=== PATIENT | female | born 1945 | race Caucasian/White ===

== ENCOUNTER → 2016-10-08 | Outpatient (CLI) | payer MEDICARE ==
[2016-10-08 21:13] LABS: INR 2.7 (<1.1); Prothrombin Time 26.5 sec (9.0-12.0)
== END | disposition home or self-care (01) ==
LOC: MMGSC 09:43
PROVIDERS: ATTEND Family Medicine
DX: Z79.01 Long term (current) use of anticoagulants (principal); Z51.81 Encounter for therapeutic drug level monitoring
CPT/HCPCS: 36415; 85610

== ENCOUNTER → 2016-10-16 | Outpatient (CLI) | payer MEDICARE ==
[2016-10-16 21:12] LABS: Prothrombin Time 29.5 sec (9.0-12.0)
== END | disposition home or self-care (01) ==
LOC: MMGSC 11:24
PROVIDERS: ATTEND Family Medicine
DX: Z79.01 Long term (current) use of anticoagulants (principal); Z51.81 Encounter for therapeutic drug level monitoring
CPT/HCPCS: 36415; 85610

== ENCOUNTER → 2016-10-24 | Outpatient (CLI) | payer MEDICARE ==
[2016-10-24 20:13] LABS: Prothrombin Time 19.1 sec (9.0-12.0)
== END | disposition home or self-care (01) ==
LOC: MMGSC 10:04
PROVIDERS: ATTEND Family Medicine
DX: Z79.01 Long term (current) use of anticoagulants (principal)
CPT/HCPCS: 36415; 85610

== ENCOUNTER → 2016-11-28 | Outpatient (CLI) | payer MEDICARE ==
[2016-11-28 19:35] LABS: INR 3.7 (<1.1); Prothrombin Time 35.6 sec (9.0-12.0)
== END | disposition home or self-care (01) ==
LOC: MMGSC 10:34
PROVIDERS: ATTEND Family Medicine
DX: Z79.01 Long term (current) use of anticoagulants (principal)
CPT/HCPCS: 36415; 85610

== ENCOUNTER → 2016-12-20 | Outpatient (CLI) | payer MEDICARE ==
[2016-12-20 21:10] LABS: Prothrombin Time 51.1 sec (9.0-12.0)
[2016-12-20 21:14] LABS: INR 5.1 (<1.1)
== END ==
LOC: MMGSC 10:13
PROVIDERS: ATTEND Family Medicine
DX: Z51.81 Encounter for therapeutic drug level monitoring (principal); Z79.01 Long term (current) use of anticoagulants
CPT/HCPCS: 36415; 85610

== ENCOUNTER → 2016-12-23 | Outpatient (CLI) | payer MEDICARE ==
[2016-12-23 19:31] LABS: INR 2.8 (<1.1); Prothrombin Time 26.7 sec (9.0-12.0)
== END ==
LOC: MMGSC 09:52
PROVIDERS: ATTEND Family Medicine
DX: Z51.81 Encounter for therapeutic drug level monitoring (principal); Z79.01 Long term (current) use of anticoagulants
CPT/HCPCS: 36415; 85610

== ENCOUNTER → 2016-12-30 | Outpatient (CLI) | payer MEDICARE ==
[2016-12-30 21:21] LABS: INR 1.7 (<1.1); Prothrombin Time 16.5 sec (9.0-12.0)
== END ==
LOC: MMGSC 13:57
PROVIDERS: ATTEND Family Medicine
DX: Z51.81 Encounter for therapeutic drug level monitoring (principal); Z79.01 Long term (current) use of anticoagulants
CPT/HCPCS: 36415; 85610

== ENCOUNTER → 2017-01-20 | Outpatient (CLI) | payer MEDICARE ==
[2017-01-20 20:11] LABS: INR 2.1 (<1.1)
== END ==
LOC: MMGSC 10:14
PROVIDERS: ATTEND Family Medicine
DX: Z51.81 Encounter for therapeutic drug level monitoring (principal); Z79.01 Long term (current) use of anticoagulants
CPT/HCPCS: 36415; 85610

== ENCOUNTER 2017-02-12 12:55 | Day surgery (SDC) | payer MEDICARE ==
[2017-02-07 15:56] VITALS: BMI 29.9
[~2017-02-12 12:55] MED LIST: LACTATED RINGERS 1,000 ML IV SCH; LIDOCAINE 1% 20 ML VIAL (10MG/ML) FOR IV START INTRADERMA PRN
[2017-02-12 13:10] VITALS: RESP 16; TEMP 97
[2017-02-12] MEDS ORDERED: PROPOFOL 10 MG/ML 20 ML VIAL IV ONE (13:45)
--- NOTE | 2017-02-12 13:53 | P.GSHP ---
History of Present Illness H&P Date: 02/12/17 Chief Complaint: Epigastric dull pain, GERD This is a 71-year-old female for from Dr. Tompkins,. Patient presents today for EGD. She's had issues of epigastric and. And GERD. - Constitutional Constitutional: Reports as per HPI Past Medical History Past Medical History: Deep Vein Thrombosis (DVT), Hyperlipidemia, Hypertension, Thyroid Disorder History of Any Multi-Drug Resistant Organisms: None Reported Past Surgical History: Cholecystectomy, Hysterectomy, Joint Replacement, Orthopedic Surgery Additional Past Surgical History / Comment(s): both knees replaced, feet surgery ; pilonidal cyst Past Anesthesia/Blood Transfusion Reactions: No Reported Reaction Smoking Status: Never smoker Past Alcohol Use History: Rare Past Drug Use History: None Reported - Past Family History Father Family Medical History: Deep Vein Thrombosis (DVT) Brother(s) Family Medical History: Deep Vein Thrombosis (DVT) Medications and Allergies Home Medications Medication Instructions Recorded Confirmed Type Acetaminophen-Codeine 300-30mg 1 tab PO Q4H PRN 02/07/17 02/07/17 History [Tylenol #3] Atorvastatin [Lipitor] 20 mg PO DAILY 02/07/17 02/07/17 History Cyclobenzaprine [Flexeril] 10 mg PO TID PRN 02/07/17 02/07/17 History Levothyroxine Sodium [Synthroid] 25 mcg PO DAILY 02/07/17 02/07/17 History Metoprolol Tartrate [Lopressor] 25 mg PO DAILY 02/07/17 02/07/17 History Omeprazole [PriLOSEC] 10 mg PO DAILY 02/07/17 02/07/17 History Warfarin [Coumadin] 2.5 mg PO SUMOWETHSA 02/07/17 02/07/17 History Warfarin [Coumadin] 5 mg PO TUFR 02/07/17 02/07/17 History clonazePAM [KlonoPIN] 0.5 mg PO TID PRN 02/07/17 02/07/17 History Allergies Allergy/AdvReac Type Severity Reaction Status Date / Time nickel Allergy Severe Rash/Hives Verified 02/12/17 13:08 Penicillins Allergy Anaphylaxis Verified 02/07/17 15:44 Sulfa (Sulfonamide Allergy Anaphylaxis Verified 02/07/17 15:44 Antibiotics) acetaminophen [From Lortab] AdvReac Nausea & Verified 02/07/17 15:44 Vomiting hydrocodone [From Lortab] AdvReac Nausea & Verified 02/07/17 15:44 Vomiting nitrofurantoin AdvReac Nausea & Verified 02/07/17 15:44 [From Macrobid] Vomiting Surgical - Exam Vital Signs Temp Pulse Resp BP Pulse Ox 97 F L 69 16 161/91 93 L 02/12/17 13:08 02/12/17 13:08 02/12/17 13:08 02/12/17 13:08 02/12/17 13:08 - General well developed, no distress - Eyes PERRL - ENT normal pinna - Neck no masses - Respiratory normal expansion - Cardiovascular Rhythm: regular - Abdomen Abdomen: soft Assessment and Plan Plan: GERD, epigastric pain. We'll perform EGD.
--- NOTE | 2017-02-12 13:57 | P.OP ---
Date of Procedure: 02/12/17 Preoperative Diagnosis: Epigastric dull pain GERD Postoperative Diagnosis: Antral gastritis No evidence of hiatal hernia Mild Esophagitis Procedure(s) Performed: EGD Anesthesia: MAC Surgeon: Harry Lofton Pathology: other (Antrum, esophagus) Condition: stable Disposition: PACU Description of Procedure: Patient's placed on the endoscopy table in the lateral position. She received IV sedation. The gastroscope some placed oropharynx and passed into the esophagus and stomach. Scope was then placed through the pylorus. The first and second portion of the duodenum appeared normal. The scope was then brought back the antrum and this was minimal inflamed and a biopsies performed. The scope was then retroflexed and remainder some appeared normal. There was no significant hiatal hernia. The GE junction was at 40 cm distal esophagus appeared mildly inflamed a biopsy was performed. The proximal esophagus appeared normal and the scope was then withdrawn for patient.
[2017-02-12 14:21] VITALS: BP 158/82; PULSE 63
== END 2017-02-12 14:42 | disposition home or self-care (01) ==
LOC: ORWHC2ENDO 12:55
PROVIDERS: ATTEND Surgery
DX: K29.50 Unspecified chronic gastritis without bleeding (principal); K21.0 Gastro-esophageal reflux disease with esophagitis; E78.5 Hyperlipidemia, unspecified; I10 Essential (primary) hypertension; E07.9 Disorder of thyroid, unspecified; Z86.718 Personal history of other venous thrombosis and embolism; Z79.01 Long term (current) use of anticoagulants; Z79.899 Other long term (current) drug therapy; Z88.1 Allergy status to other antibiotic agents; Z88.0 Allergy status to penicillin; Z88.2 Allergy status to sulfonamides; Z91.09 Other allergy status, other than to drugs and biological substances
CPT/HCPCS: 88305; 88342; 43239; J2704

== ENCOUNTER → 2017-02-20 | Outpatient (CLI) | payer MEDICARE | LOC: MMGSC 11:00 | PROVIDERS: ATTEND Family Medicine | DX: Z51.81 Encounter for therapeutic drug level monitoring (principal); Z79.01 Long term (current) use of anticoagulants | CPT/HCPCS: 36415; 85610 ==

== ENCOUNTER → 2017-03-19 | Outpatient (CLI) | payer MEDICARE ==
[2017-03-19 19:50] LABS: INR 2.8 (<1.1); Prothrombin Time 26.6 sec (9.0-12.0)
== END | disposition home or self-care (01) ==
LOC: MMGSC 09:36
PROVIDERS: ATTEND Family Medicine
DX: Z51.81 Encounter for therapeutic drug level monitoring (principal); Z79.01 Long term (current) use of anticoagulants
CPT/HCPCS: 36415; 85610

== ENCOUNTER → 2017-04-21 | Outpatient (CLI) | payer MEDICARE ==
[2017-04-21 19:01] LABS: INR 2.4 (<1.2); Prothrombin Time 23.3 sec (9.0-12.0)
== END ==
LOC: MMGSC 10:20
PROVIDERS: ATTEND Family Medicine
DX: Z51.81 Encounter for therapeutic drug level monitoring (principal); Z79.01 Long term (current) use of anticoagulants
CPT/HCPCS: 36415; 85610

== ENCOUNTER → 2017-06-02 | Outpatient (CLI) | payer MEDICARE ==
[2017-06-02 19:44] LABS: Basophils # (A) 0.1 k/uL (0-0.2); Basophils % (A) 1 %; CH 30.5; CHCM 32.5; Eosinophils # (A) 0.1 k/uL (0-0.7); Eosinophils % (A) 2 %; HCT 46.6 % (34.0-46.0); HDW 2.48; HGB 14.9 gm/dL (11.4-16.0); Luc # (Auto) 0.28; Luc % (Auto) 3; Lymphocytes # (A) 2.3 k/uL (1.0-4.8); Lymphocytes % (A) 28 %; MCH 30.3 pg (25.0-35.0); MCV 94.6 fL (80.0-100.0); Mean Platelet Volume 8.6; Monocytes # (A) 0.7 k/uL (0-1.0); Monocytes % (A) 8 %; Neutrophils # (A) 4.9 k/uL (1.3-7.7); Neutrophils % (A) 58 %; RBC 4.93 m/uL (3.80-5.40); RDW 15.1 % (11.5-15.5); WBC 8.4 k/uL (3.8-10.6); WBC (Perox) 8.61
[2017-06-02 19:56] LABS: ALT 41 U/L (9-52); AST 23 U/L (14-36); Alkaline Phosphatase 117 U/L (38-126); Anion Gap 10 mmol/L; Blood Urea Nitrogen 19 mg/dL (7-17); Calcium 9.7 mg/dL (8.4-10.2); Carbon Dioxide 27 mmol/L (22-30); Chloride 105 mmol/L (98-107); Cholesterol 210 mg/dL (<200); Glucose 91 mg/dL (74-99); HDL Cholesterol 60 mg/dL (40-60); Non-African American GFR(MDRD) >60 (>60 ml/min/1.73 sqM); Potassium 4.7 mmol/L (3.5-5.1); Sodium 142 mmol/L (137-145); Total Protein 6.8 g/dL (6.3-8.2)
[2017-06-02 20:17] LABS: INR 1.9 (<1.2); Prothrombin Time 18.1 sec (9.0-12.0)
== END | disposition home or self-care (01) ==
LOC: MMGSC 10:56
PROVIDERS: ATTEND Family Medicine
DX: E03.9 Hypothyroidism, unspecified (principal); E78.5 Hyperlipidemia, unspecified; I48.91 Unspecified atrial fibrillation; Z79.01 Long term (current) use of anticoagulants
CPT/HCPCS: 36415; 80053; 80061; 84439; 84443; 85025; 85610

== ENCOUNTER → 2017-07-02 | Outpatient (CLI) | payer MEDICARE ==
[2017-07-02 20:14] LABS: INR 2.2 (<1.2); Prothrombin Time 20.7 sec (9.0-12.0)
== END ==
LOC: MMGSC 10:10
PROVIDERS: ATTEND Family Medicine
DX: Z51.81 Encounter for therapeutic drug level monitoring (principal); Z79.01 Long term (current) use of anticoagulants
CPT/HCPCS: 36415; 85610

== ENCOUNTER → 2017-08-15 | Outpatient (CLI) | payer MEDICARE ==
[2017-08-15 19:24] LABS: ALT 33 U/L (9-52); AST 19 U/L (14-36); Alkaline Phosphatase 136 U/L (38-126); Anion Gap 10 mmol/L; Blood Urea Nitrogen 20 mg/dL (7-17); Calcium 9.5 mg/dL (8.4-10.2); Carbon Dioxide 22 mmol/L (22-30); Chloride 110 mmol/L (98-107); Cholesterol 213 mg/dL (<200); Glucose 170 mg/dL (74-99); HDL Cholesterol 56 mg/dL (40-60); Non-African American GFR(MDRD) >60 (>60 ml/min/1.73 sqM); Sodium 142 mmol/L (137-145); Total Bilirubin 0.7 mg/dL (0.2-1.3); Total Protein 6.6 g/dL (6.3-8.2)
[2017-08-15 19:50] LABS: Basophils % (A) 0 %; CH 28.9; CHCM 30.9; Eosinophils % (A) 0 %; HCT 44.7 % (34.0-46.0); HDW 2.51; HGB 13.9 gm/dL (11.4-16.0); Hypochromasia Slight; Luc # (Auto) 0.16; Luc % (Auto) 1; Lymphocytes # (A) 2.5 k/uL (1.0-4.8); Lymphocytes % (A) 19 %; MCH 29.1 pg (25.0-35.0); MCV 93.9 fL (80.0-100.0); Mean Platelet Volume 8.8; Monocytes # (A) 0.6 k/uL (0-1.0); Monocytes % (A) 5 %; Neutrophils # (A) 9.9 k/uL (1.3-7.7); Neutrophils % (A) 75 %; RBC 4.76 m/uL (3.80-5.40); RDW 14.1 % (11.5-15.5); WBC 13.1 k/uL (3.8-10.6); WBC (Perox) 12.66
[2017-08-15 20:24] LABS: INR 3.8 (<1.2); Prothrombin Time 37.5 sec (9.0-12.0)
== END | disposition home or self-care (01) ==
LOC: MMGSC 10:07
PROVIDERS: ATTEND Family Medicine
DX: I10 Essential (primary) hypertension (principal); E03.9 Hypothyroidism, unspecified; E78.5 Hyperlipidemia, unspecified; Z79.01 Long term (current) use of anticoagulants
CPT/HCPCS: 36415; 80053; 80061; 84439; 84443; 85025; 85610

== ENCOUNTER → 2017-08-19 | Outpatient (CLI) | payer MEDICARE ==
--- NOTE | 2017-08-20 09:20 | MM ---
Reason for exam: screening (asymptomatic). Last mammogram was performed 1 year and 1 month ago. History: Patient is postmenopausal. Physical Findings: A clinical breast exam by your physician is recommended on an annual basis and results should be correlated with mammographic findings. MG 3D Screening Mammo W/Cad Bilateral CC and MLO view(s) were taken. Prior study comparison: July 23, 2016, bilateral MG 3d screening mammo w/cad. July 18, 2015, bilateral MG screening mammo w CAD. There are scattered fibroglandular densities. Finding: There are typically benign calcifications. There is a chronic nodularity in the right breast. No significant changes in finding since July 23, 2016 and July 18, 2015. ASSESSMENT: Benign, BI-RAD 2 RECOMMENDATION: Routine screening mammogram of both breasts in 1 year.
== END | disposition home or self-care (01) ==
LOC: RADMAMWWP 09:45
PROVIDERS: ATTEND Family Medicine
DX: Z12.31 Encounter for screening mammogram for malignant neoplasm of breast (principal)
CPT/HCPCS: 77063; G0202

== ENCOUNTER → 2017-08-26 | Outpatient (CLI) | payer MEDICARE ==
[2017-08-26 20:20] LABS: INR 1.7 (<1.2); Prothrombin Time 16.6 sec (9.0-12.0)
== END ==
LOC: MMGSC 10:46
PROVIDERS: ATTEND Family Medicine
DX: Z51.81 Encounter for therapeutic drug level monitoring (principal); Z79.01 Long term (current) use of anticoagulants
CPT/HCPCS: 36415; 85610

== ENCOUNTER → 2017-09-01 | Outpatient (CLI) | payer MEDICARE ==
[2017-09-01 20:25] LABS: INR 1.9 (<1.2)
== END ==
LOC: MMGSC 11:48
PROVIDERS: ATTEND Family Medicine
DX: Z51.81 Encounter for therapeutic drug level monitoring (principal); Z79.01 Long term (current) use of anticoagulants
CPT/HCPCS: 36415; 85610

== ENCOUNTER → 2017-10-08 | Outpatient (CLI) | payer MEDICARE ==
[2017-10-08 20:32] LABS: INR 3.8 (<1.2); Prothrombin Time 33.9 sec (9.0-12.0)
== END | disposition home or self-care (01) ==
LOC: MMGSC 11:44
PROVIDERS: ATTEND Family Medicine
DX: Z51.81 Encounter for therapeutic drug level monitoring (principal); Z79.01 Long term (current) use of anticoagulants
CPT/HCPCS: 36415; 85610

== ENCOUNTER → 2017-11-18 | Outpatient (CLI) | payer MEDICARE ==
[2017-11-18 21:07] LABS: INR 2.5 (<1.2); Prothrombin Time 22.2 sec (9.0-12.0)
== END | disposition home or self-care (01) ==
LOC: MMGSC 09:47
PROVIDERS: ATTEND Family Medicine
DX: Z51.81 Encounter for therapeutic drug level monitoring (principal); Z79.01 Long term (current) use of anticoagulants
CPT/HCPCS: 36415; 85610

== ENCOUNTER → 2017-12-08 | Outpatient (CLI) | payer MEDICARE | END | disposition home or self-care (01) | LOC: MMGSC 12:07 | PROVIDERS: ATTEND Family Medicine | DX: N39.0 Urinary tract infection, site not specified (principal) | CPT/HCPCS: 87077; 87086; 87186 ==

== ENCOUNTER 2018-05-09 16:25 | Inpatient (IN) | payer MEDICARE ==
[2018-05-09] MEDS ORDERED: SODIUM CHLORIDE 0.9% 1,000 ML IV STA ×2 (17:58)
--- NOTE | 2018-05-09 18:02 | ED ---
General Adult HPI - General Chief complaint: Headache Stated complaint: headache/nausea Time Seen by Provider: 05/09/18 17:57 Source: patient, RN notes reviewed, old records reviewed Mode of arrival: ambulatory Limitations: no limitations - History of Present Illness Initial comments: This is a 72-year-old female to the ER for evaluation. Patient presents today for evaluation regarding headache, weakness,. Patient states she has history of similar complaints. She states she was seen this week for similar complaint and had a CAT scan yesterday told her blood pressure was high. Patient was discharged home. Symptoms have persisted - Related Data Home Medications Medication Instructions Recorded Confirmed Acetaminophen-Codeine 300-30mg 1 tab PO Q4H PRN 02/07/17 02/07/17 [Tylenol #3] Atorvastatin [Lipitor] 20 mg PO DAILY 02/07/17 02/07/17 Cyclobenzaprine [Flexeril] 10 mg PO TID PRN 02/07/17 02/07/17 Levothyroxine Sodium [Synthroid] 25 mcg PO DAILY 02/07/17 02/07/17 Metoprolol Tartrate [Lopressor] 25 mg PO DAILY 02/07/17 02/07/17 Omeprazole [PriLOSEC] 10 mg PO DAILY 02/07/17 02/07/17 Warfarin [Coumadin] 2.5 mg PO SUMOWETHSA 02/07/17 02/07/17 Warfarin [Coumadin] 5 mg PO TUFR 02/07/17 02/07/17 clonazePAM [KlonoPIN] 0.5 mg PO TID PRN 02/07/17 02/07/17 Allergies Allergy/AdvReac Type Severity Reaction Status Date / Time nickel Allergy Severe Rash/Hives Verified 02/12/17 13:08 Penicillins Allergy Anaphylaxis Verified 02/07/17 15:44 Sulfa (Sulfonamide Allergy Anaphylaxis Verified 02/07/17 15:44 Antibiotics) acetaminophen [From Lortab] AdvReac Nausea & Verified 02/07/17 15:44 Vomiting hydrocodone [From Lortab] AdvReac Nausea & Verified 02/07/17 15:44 Vomiting nitrofurantoin AdvReac Nausea & Verified 02/07/17 15:44 [From Macrobid] Vomiting Review of Systems ROS Statement: Those systems with pertinent positive or pertinent negative responses have been documented in the HPI. ROS Other: All systems not noted in ROS Statement are negative. Past Medical History Past Medical History: Deep Vein Thrombosis (DVT), Hyperlipidemia, Hypertension, Thyroid Disorder History of Any Multi-Drug Resistant Organisms: None Reported Past Surgical History: Cholecystectomy, Hysterectomy, Joint Replacement, Orthopedic Surgery Additional Past Surgical History / Comment(s): both knees replaced, feet surgery ; pilonidal cyst Past Anesthesia/Blood Transfusion Reactions: No Reported Reaction Past Psychological History: No Psychological Hx Reported Smoking Status: Never smoker Past Alcohol Use History: Rare Past Drug Use History: None Reported - Past Family History Father Family Medical History: Deep Vein Thrombosis (DVT) Brother(s) Family Medical History: Deep Vein Thrombosis (DVT) General Exam Limitations: no limitations General appearance: alert, in no apparent distress Head exam: Present: atraumatic, normocephalic, normal inspection Eye exam: Present: normal appearance, PERRL, EOMI. Absent: scleral icterus, conjunctival injection, periorbital swelling ENT exam: Present: normal exam, mucous membranes moist Neck exam: Present: normal inspection. Absent: tenderness, meningismus, lymphadenopathy Respiratory exam: Present: normal lung sounds bilaterally. Absent: respiratory distress, wheezes, rales, rhonchi, stridor Cardiovascular Exam: Present: regular rate, normal rhythm, normal heart sounds. Absent: systolic murmur, diastolic murmur, rubs, gallop, clicks GI/Abdominal exam: Present: soft, normal bowel sounds. Absent: distended, tenderness, guarding, rebound, rigid Extremities exam: Present: normal inspection, full ROM, normal capillary refill. Absent: tenderness, pedal edema, joint swelling, calf tenderness Back exam: Present: normal inspection Neurological exam: Present: alert, oriented X3, CN II-XII intact Psychiatric exam: Present: normal affect, normal mood Skin exam: Present: warm, dry, intact, normal color. Absent: rash Course Vital Signs 05/09/18 16:42 Temperature 99.5 F Pulse Rate 77 Respiratory 16 Rate Blood Pressure 134/85 O2 Sat by Pulse 95 Oximetry - Reevaluation(s) Reevaluation #1: 05/09/18 19:[address] Avila did see patient in the emergency room regarding symptoms EKG Findings - EKG Comments: EKG Findings:: EKG shows sinus rhythm rate of 72, TX 154, QRS 80, QTC 442 Medical Decision Making - Medical Decision Making 72 female the ER with recurrent neurological complaints, CT remains negative. We'll request patient's lab work from prior ER visit at [facility]. Patient does and will be admitted for advanced neurological testing blood pressure control - Lab Data Result diagrams: 05/09/18 18:47 05/09/18 18:47 Lab Results 05/09/18 05/09/18 05/09/18 Range/Units 18:47 18:47 18:47 WBC 10.1 (3.8-10.6) k/uL RBC 5.07 (3.80-5.40) m/uL Hgb 14.0 (11.4-16.0) gm/dL Hct 44.1 (34.0-46.0) % MCV 86.9 (80.0-100.0) fL MCH 27.7 (25.0-35.0) pg MCHC 31.9 (31.0-37.0) g/dL RDW 13.2 (11.5-15.5) % Plt Count 287 (150-450) k/uL Neutrophils % 75 % Lymphocytes % 18 % Monocytes % 4 % Eosinophils % 0 % Basophils % 0 % Neutrophils # 7.6 (1.3-7.7) k/uL Lymphocytes # 1.8 (1.0-4.8) k/uL Monocytes # 0.4 (0-1.0) k/uL Eosinophils # 0.0 (0-0.7) k/uL Basophils # 0.0 (0-0.2) k/uL PT (9.0-12.0) sec INR (<1.2) APTT (22.0-30.0) sec Sodium 139 (137-145) mmol/L Potassium 4.4 (3.5-5.1) mmol/L Chloride 106 (98-107) mmol/L Carbon Dioxide 24 (22-30) mmol/L Anion Gap 9 mmol/L BUN 15 (7-17) mg/dL Creatinine 0.80 (0.52-1.04) mg/dL Est GFR (CKD-EPI)AfAm 85 (>60 ml/min/1.73 sqM) Est GFR (CKD-EPI)NonAf 74 (>60 ml/min/1.73 sqM) Glucose 114 H (74-99) mg/dL Calcium 9.6 (8.4-10.2) mg/dL Phosphorus 3.1 (2.5-4.5) mg/dL Magnesium 1.9 (1.6-2.3) mg/dL Total Bilirubin 1.1 (0.2-1.3) mg/dL AST 21 (14-36) U/L ALT 31 (9-52) U/L Alkaline Phosphatase 171 H (38-126) U/L Total Creatine Kinase 54 (30-135) U/L CK-MB (CK-2) 0.2 (0.0-2.4) ng/mL CK-MB (CK-2) Rel Index 0.4 Troponin I <0.012 (0.000-0.034) ng/mL Total Protein 7.0 (6.3-8.2) g/dL Albumin 4.3 (3.5-5.0) g/dL 05/09/18 Range/Units 18:47 WBC (3.8-10.6) k/uL RBC (3.80-5.40) m/uL Hgb (11.4-16.0) gm/dL Hct (34.0-46.0) % MCV (80.0-100.0) fL MCH (25.0-35.0) pg MCHC (31.0-37.0) g/dL RDW (11.5-15.5) % Plt Count (150-450) k/uL Neutrophils % % Lymphocytes % % Monocytes % % Eosinophils % % Basophils % % Neutrophils # (1.3-7.7) k/uL Lymphocytes # (1.0-4.8) k/uL Monocytes # (0-1.0) k/uL Eosinophils # (0-0.7) k/uL Basophils # (0-0.2) k/uL PT 28.1 H (9.0-12.0) sec INR 3.1 H (<1.2) APTT 30.6 H (22.0-30.0) sec Sodium (137-145) mmol/L Potassium (3.5-5.1) mmol/L Chloride (98-107) mmol/L Carbon Dioxide (22-30) mmol/L Anion Gap mmol/L BUN (7-17) mg/dL Creatinine (0.52-1.04) mg/dL Est GFR (CKD-EPI)AfAm (>60 ml/min/1.73 sqM) Est GFR (CKD-EPI)NonAf (>60 ml/min/1.73 sqM) Glucose (74-99) mg/dL Calcium (8.4-10.2) mg/dL Phosphorus (2.5-4.5) mg/dL Magnesium (1.6-2.3) mg/dL Total Bilirubin (0.2-1.3) mg/dL AST (14-36) U/L ALT (9-52) U/L Alkaline Phosphatase (38-126) U/L Total Creatine Kinase (30-135) U/L CK-MB (CK-2) (0.0-2.4) ng/mL CK-MB (CK-2) Rel Index Troponin I (0.000-0.034) ng/mL Total Protein (6.3-8.2) g/dL Albumin (3.5-5.0) g/dL - Radiology Data Radiology results: report reviewed (CT brain CT head and neck negative), image reviewed Disposition Clinical Impression: Migraine, Hypertension, CVA (cerebral vascular accident) Disposition: ADMITTED IP TO THIS HOSP Condition: Fair Referrals: Karan Yuan MD [Primary Care Provider] - 1-2 days
[2018-05-09 19:03] LABS: Basophils % (A) 0 %; Eosinophils % (A) 0 %; HCT 44.1 % (34.0-46.0); Lymphocytes # (A) 1.8 k/uL (1.0-4.8); Lymphocytes % (A) 18 %; MCH 27.7 pg (25.0-35.0); MCHC 31.9 g/dL (31.0-37.0); MCV 86.9 fL (80.0-100.0); Mean Platelet Volume 7.1; Monocytes # (A) 0.4 k/uL (0-1.0); Monocytes % (A) 4 %; Neutrophils # (A) 7.6 k/uL (1.3-7.7); Neutrophils % (A) 75 %; Platelet Count 287 k/uL (150-450); RBC 5.07 m/uL (3.80-5.40); RDW 13.2 % (11.5-15.5); WBC 10.1 k/uL (3.8-10.6)
[2018-05-09 19:19] LABS: Creatine Kinase 54 U/L (30-135)
[2018-05-09 19:21] LABS: Albumin 4.3 g/dL (3.5-5.0); Calcium 9.6 mg/dL (8.4-10.2); Magnesium 1.9 mg/dL (1.6-2.3); Phosphorus 3.1 mg/dL (2.5-4.5); Potassium 4.4 mmol/L (3.5-5.1); Total Bilirubin 1.1 mg/dL (0.2-1.3)
[2018-05-09 19:26] LABS: INR 3.1 (<1.2); Partial Thromboplastin Time 30.6 sec (22.0-30.0); Prothrombin Time 28.1 sec (9.0-12.0)
[2018-05-09 19:31] LABS: Creatine Kinase MB 0.2 ng/mL (0.0-2.4); Troponin I <0.012 ng/mL (0.000-0.034)
--- NOTE | 2018-05-09 19:50 | CT ---
EXAMINATION TYPE: CT brain wo con DATE OF EXAM: 05/09/2018 COMPARISON: None INDICATION: weakness DLP: 742.7 mGycm, Automated exposure control for dose reduction was used. CONTRAST: None CT of the brain is performed utilizing 3 mm thick sections through the posterior fossa and 3 mm thick sections through the remaining calvarium. Study is performed within 24 hours of arrival to the hosp ital. No abnormal hyperdensity is present to suggest an acute intracranial hemorrhage. No mass lesion is evident. No acute infarcts are evident. There is some mild periventricular white matter hypodensity, most like ly on the basis of chronic white matter ischemic changes. Ventricles and sulci are appropriate for the patient age. Paranasal sinuses and mastoid air cells within the [id number] are clear. IMPRESSIONS: 1. Mild white matter changes most likely chronic ischemic changes
[2018-05-09] MEDS ORDERED: ASPIRIN 325 MG TAB PO STA (19:53)
[2018-05-09] MEDS ORDERED: MORPHINE SULFATE 4 MG/ML SYRINGE IVP PRN (20:06)
[2018-05-09] MEDS ORDERED: ONDANSETRON 4 MG/2 ML VIAL IVP STA (20:06)
[2018-05-09] MEDS ORDERED: MORPHINE SULFATE 4 MG/ML SYRINGE IVP STA (20:06)
--- NOTE | 2018-05-09 20:18 | CT ---
EXAMINATION TYPE: CT angio head neck DATE OF EXAM: 05/09/2018 HISTORY: pain COMPARISON: None CT DLP: 267.3 mGycm. Automated Exposure Control for Dose Reduction was Utilized. TECHNIQUE: CTA scan of the neck is performed with IV Contrast, patient injected with 65 mL of Isovue 370, axial images are obtained, coronal and sagittal reformatted images are reviewed. Three-D recons tructed images are created on an independent workstation and reviewed. FINDINGS: Carotid/Vascular Structures: Common carotid arteries bifurcate into internal and external carotid art eries. No significant flow-limiting stenosis is evident. Vertebral arteries are codominant. [place]: Internal carotid arteries bifurcate into A1 and M1 segments. The A2 segments are no rmal. Anterior communicating artery is patent. The left posterior communicating artery is patent. Ivis tebral basilar system appears patent. Posterior cerebral vasculature is normal. IMPRESSION: 1. No significant flow-limiting stenosis.
[2018-05-09] MEDS: SODIUM CHLORIDE 0.9% 1,000 ML IV SCH (22:53)
[2018-05-09 23:09] VITALS: BMI 30.7
[2018-05-10 05:53] LABS: Cholesterol 167 mg/dL (<200); HDL Cholesterol 43 mg/dL (40-60); LDL Cholesterol,Calculated 92 mg/dL (0-99); Triglycerides 162 mg/dL (<150)
[2018-05-10] MEDS: SODIUM CHLORIDE 0.9% 1,000 ML IV SCH ×2 (05:58→17:39)
[2018-05-10] MEDS: ONDANSETRON 4 MG/2 ML VIAL IVP PRN ×2 (06:51→14:00)
[2018-05-10] MEDS: ASPIRIN 325 MG TAB PO SCH (08:31)
[2018-05-10] MEDS ORDERED: clonazePAM 0.5 MG TAB PO PRN (10:21)
[2018-05-10] MEDS ORDERED: CYCLOBENZAPRINE 10 MG TAB PO PRN (10:21)
[2018-05-10] MEDS ORDERED: Acetaminophen-Codeine 300-30mg TAB PO PRN (10:21)
[2018-05-10 11:20] LABS: Prothrombin Time 26.9 sec (9.0-12.0)
--- NOTE | 2018-05-10 11:46 | HP ---
HISTORY AND PHYSICAL DATE OF SERVICE: 05/09/2018. CHIEF COMPLAINT: A 72-year-old white female with headache, nausea, and left arm tingling and vomiting. Came in with possible TIA. She was seen in the emergency room the day before admission here for the same thing. The blood pressures was running high. She was admitted to the hospital at this time for possible TIA and hypertension acceleration with left arm weakness and numbness. HOME MEDICATIONS: 1. Lipitor. 2. Flexeril. 3. Synthroid. 4. Lopressor. 5. Prilosec. 6. Coumadin. 7. Tylenol 3. 8. Clonazepam. ALLERGIES: , PENICILLIN, SULFA, LORTAB, MACROBID. REVIEW OF SYSTEMS: A fourteen point review of systems negative except for mentioned in HPI. PAST MEDICAL HISTORY: DVT, dyslipidemia, hypertension, hypothyroidism. SURGICAL HISTORY: Cholecystectomy, hysterectomy, joint replacement, orthopedic surgery, bilateral knee replacement. SOCIAL HISTORY: No smoking. Rare alcohol. No illicit drugs. FAMILY HISTORY: Father with DVT. Brother with DVT. PHYSICAL EXAM: Temp 99.5, pulse 70 to 77, respiratory rate 16 to 18, blood pressure 130s over 80s, O2 of 95%. HEENT: Normocephalic, atraumatic. CARDIOVASCULAR: S1, S2. Tenderness to palpation in paracervical and paralumbar muscle. CARDIOVASCULAR: Normal rate and rhythm. GI: Soft, nontender. No guarding. No rebound. EXTREMITIES: No cyanosis, clubbing, edema. BACK: Normal to inspection. NEUROLOGIC: Alert and oriented x3. PSYCH: Fair mood and affect. SKIN: Warm, dry, intact. LUNGS: Clear. ENDOCRINE: BMI is over 30. DIAGNOSTIC STUDIES: EKG sinus rhythm. Labs reviewed on the patient. Troponins are negative. Alkaline phosphatase is little high. INR is 3.1. ASSESSMENT: 1. Migraine. 2. Hypertension. 3. Cerebrovascular accident. 4. Hypothyroidism. Will order MRI of the brain. Await Neurology consult. Maybe a carotid ultrasound. MMODL / IJN: [id number] /
[2018-05-10 12:46] LABS: Amylase 41 U/L (30-110); Lipase 57 U/L (23-300)
--- NOTE | 2018-05-10 12:57 | CT ---
EXAMINATION TYPE: CT cervical spine wo con DATE OF EXAM: 05/10/2018 COMPARISON: None. HISTORY: DDD and arm numbness CT DLP: 557.00 mGycm Automated exposure control for dose reduction was used. TECHNIQUE: CT scan of the cervical spine is obtained without contrast, axial images are obtained, sa gittal and coronal reformatted images are also reviewed. FINDINGS: Visualized portions of the lungs are clear. There are mild emphysematous changes present. Prevertebral soft tissues are normal. Vertebral body height and alignment are maintained. Atlantoaxial relationships are normal. At C2-3, no definite abnormality is seen. At C3-4, there is disc space loss. There is right-sided intervertebral foraminal narrowing. There is a diffuse disc displacement. There is mild hypertrophic change in the right facet. There is mild unco vertebral joint disease. At C4-5, there is bilateral facet arthropathy. Intervertebral foramina are reasonably well-maintained . There is no significant compressive discopathy. The uncovertebral joints show mild degenerative anthony nge. At C5-6, there is severe disc space loss and hypertrophic spondylosis both anteriorly and posteriorly . There is some hypertrophic changes in the facets. There is bilateral intervertebral foraminal narro wing, worse on the left than the right. There is uncovertebral and facet arthropathy. At C6-7, there is severe disc space loss and hypertrophic spondylosis both anteriorly and posteriorly . There is bilateral intervertebral foraminal narrowing. There is facet and uncovertebral joint disea se. At C7-T1, the intervertebral foramina are well maintained. There is no significant compressive discop athy. IMPRESSION: 1. Diffuse degenerative disc disease and hypertrophic spondylosis. 2. Multilevel intervertebral foraminal narrowing. 3. Diffuse uncovertebral joint disease. 4. Emphysematous changes within the lungs.
--- NOTE | 2018-05-10 14:21 | P.CNNES ---
History of Present Illness Consult date: 05/10/18 Requesting physician: Karan Yuan Reason for Consult: Possible CVA History of Present Illness: Patient is a pleasant 72-year-old female who is being evaluated by the neurology service on 05/10/2018 per the request of Dr. Yuan for possible CVA. Patient has history of lower extremity DVTs and is on warfarin in the home setting. Patient has history of cervical and lumbar disc disease and sees Dr. Grimes in the outpatient setting. Patient states she's had a headache for the last few days but it does come and go. She also states she's had left hand and finger numbness and tingling that comes and goes. Patient states numbness and tingling lasts for seconds and goes away. Patient was seen earlier this week for similar complaints and had a CAT scan done which was negative and patient was discharged home. Patient presents to [facility] again because symptoms have persisted. Patient had CT scan of the brain done on admission which is negative for any acute process. CT does show mild white matter changes most likely chronic ischemic changes. Patient also had CTA which was negative for any significant stenosis. Patient had an MRI of the cervical spine done in January 2018 which showed C4 - C5 discopathy with mild foraminal narrowing. CT of the cervical spine done today shows C5C6 and C6-C7 severe disc space loss and hypertrophic spondylosis. Also shows hypertrophic changes in the facets. There is bilateral intravertebral foraminal narrowing which is worse on the left than on the right. Vital signs at admission show temperature 99.5, pulse rate 77, respiratory rate 16, blood pressure 134/85, and O2 saturation 95% on room air. Labs on admission show normal CBC with differential, glucose 114, alk phos elevated at 171. Lipid panel was within normal limits except for high triglycerides at 162. At the time of my evaluation, patient's resting comfortably in bed and appears to be in no acute distress. Review of Systems REVIEW OF SYSTEMS: Otherwise unremarkable and noncontributory. Past Medical History Past Medical History: Deep Vein Thrombosis (DVT), Hyperlipidemia, Hypertension, Thyroid Disorder History of Any Multi-Drug Resistant Organisms: None Reported Past Surgical History: Cholecystectomy, Hysterectomy, Joint Replacement, Orthopedic Surgery Additional Past Surgical History / Comment(s): both knees replaced, feet surgery ; pilonidal cyst Past Anesthesia/Blood Transfusion Reactions: No Reported Reaction Past Psychological History: No Psychological Hx Reported Smoking Status: Never smoker Past Alcohol Use History: Rare Past Drug Use History: None Reported - Past Family History Father Family Medical History: Deep Vein Thrombosis (DVT) Brother(s) Family Medical History: Deep Vein Thrombosis (DVT) Medications and Allergies Home Medications Medication Instructions Recorded Confirmed Type Acetaminophen-Codeine 300-30mg 1 tab PO Q4H PRN 02/07/17 05/10/18 History [Tylenol #3] Atorvastatin [Lipitor] 40 mg PO DAILY 02/07/17 05/10/18 History Cyclobenzaprine [Flexeril] 10 mg PO TID PRN 02/07/17 05/10/18 History Levothyroxine Sodium [Synthroid] 25 mcg PO DAILY 02/07/17 05/10/18 History Metoprolol Tartrate [Lopressor] 50 mg PO BID 02/07/17 05/10/18 History Omeprazole [PriLOSEC] 40 mg PO DAILY 02/07/17 05/10/18 History Warfarin [Coumadin] 2.5 mg PO DAILY 02/07/17 05/10/18 History clonazePAM [KlonoPIN] 0.5 mg PO TID PRN 02/07/17 05/10/18 History Allergies Allergy/AdvReac Type Severity Reaction Status Date / Time nickel Allergy Severe Rash/Hives Verified 05/10/18 13:21 Penicillins Allergy Anaphylaxis Verified 05/10/18 13:21 Sulfa (Sulfonamide Allergy Anaphylaxis Verified 05/10/18 13:21 Antibiotics) acetaminophen [From Lortab] AdvReac Nausea & Verified 05/10/18 13:21 Vomiting hydrocodone [From Lortab] AdvReac Nausea & Verified 05/10/18 13:21 Vomiting nitrofurantoin AdvReac Nausea & Verified 05/10/18 13:21 [From Macrobid] Vomiting Physical Examination - Vital Signs Vital Signs: Vital Signs Temp Pulse Pulse Resp BP BP Pulse Ox 05/10/18 12:53 64 18 132/78 97 05/10/18 10:53 62 16 131/74 94 L 05/10/18 08:53 97.9 F 63 18 120/70 95 05/10/18 06:53 97.7 F 61 18 129/68 97 08/05/18 04:53 97.8 F 61 18 132/61 96 05/10/18 04:00 99.2 F 68 16 127/65 96 05/10/18 02:53 98.9 F 68 16 140/68 97 05/10/18 00:53 98.2 F 72 18 143/70 95 05/10/18 00:00 97.1 F L 74 18 149/69 96 05/09/18 22:53 96.6 F L 77 18 161/78 95 05/09/18 21:53 97.0 F L 78 18 147/75 95 05/09/18 21:50 99.4 F 05/09/18 21:35 67 18 178/82 96 05/09/18 20:53 97.2 F L 77 18 147/75 95 05/09/18 20:30 97.1 F L 74 18 149/69 96 05/09/18 16:42 99.5 F 77 16 134/85 95 Intake and Output 05/09/18 05/10/18 05/10/18 22:59 06:59 14:59 Intake Total 380 240 Balance 380 240 Intake: Intake, IV Titration 200 Amount Sodium Chloride 0.9% 1, 200 000 ml @ 100 mls/hr IV . Q10H [facility] Rx#:[id number] Oral 180 240 Other: Voiding Method Toilet # Voids 1 1 Weight 83.915 kg 86.6 kg PHYSICAL EXAM: GENERAL APPEARANCE: Patient is a well-developed, female who appears to be in no acute distress. HEENT: Normocephalic, atraumatic, no facial asymmetry is seen. Neck is supple with no masses felt. CARDIOVASCULAR: Regular rate and rhythm. ABDOMEN: Nontender, nondistended. EXTREMITIES: Show no edema or clubbing. NEUROLOGICAL EXAM: Patient is awake, alert, and oriented 3. Speech and language are normal. Strength is full in all 4 extremities. Sensory exam to light touch is normal in all 4 extremities. No facial asymmetry seen on cranial nerve testing. No tremors or seizure-like activity is seen. Results - Laboratory Findings CBC and BMP: 05/09/18 18:47 05/09/18 18:47 Abnormal Lab Findings: Abnormal Labs 05/09/18 05/09/18 05/10/18 18:47 18:47 05:29 PT 28.1 H INR 3.1 H APTT 30.6 H Glucose 114 H Alkaline Phosphatase 171 H Triglycerides 162 H 05/10/18 10:35 PT 26.9 H INR 3.0 H APTT Glucose Alkaline Phosphatase Triglycerides Assessment and Plan Plan: Impression: 1. Possible TIA versus CVA 2. Migraine headache 3. Left hand and fingers numbness and tingling 4. Hypertension 5. Cervical disc disease 6. Chronic back pain 7. History of lower extremity DVTs, on Coumadin Recommendations: Patient continues to complain of severe headache which is mostly occipital. Patient states headache is been on and off for the last few days. Patient states headaches respond to a medication similar to Excedrin migraine which she gets in [place]. As mentioned above, CT of the brain and CTA of the brain were negative for any acute process. Neurological exam shows no lateralizing weakness, dysarthria or facial asymmetry. She denies dysphagia. Due to patient describing this the worst headache of her life, I will order an MRI of the brain, EEG, and serum homocysteine level. Continue anticoagulation with warfarin. INR was therapeutic on admission at 3.1. Continue statin therapy. If MRI of the brain is negative, patient may benefit from Fioricet every 8 hours when necessary. As for her left hand and finger numbness and tingling, CT of the cervical spine does show C5-C6 and C6-C7 intravertebral foraminal narrowing due to degenerative disc disease. Patient may benefit from cervical epidurals in the outpatient setting. For now I would recommend starting gabapentin 300 mg daily at bedtime with a goal of titrating up to 300 mg 3 times a day. Patient will need NCS/EMGs of the upper extremities in the outpatient setting. Continue neurological checks. Continue current medical management for hypertension and nausea. I will continue to follow with you. Further recommendations to follow after testing. Thank you for allowing me to participate in the care of your patient. Feel free to call with any questions or concerns. I performed an examination of the patient and discussed the management with the WEB DESIGN SPECIALIST. I have reviewed the WEB DESIGN SPECIALIST notes and agree with the findings and plan of care.
[2018-05-10] MEDS: METOPROLOL TARTRATE 50 MG TAB PO SCH (21:15)
[2018-05-10] MEDS: GABAPENTIN 300 MG CAP PO SCH (21:15)
--- NOTE | 2018-05-10 21:40 | PN ---
PROGRESS NOTE She is complaining of nausea, left hand weakness. Hypertension is more improved. Discussed a CT scan of the spine for her as well as MRI of the brain. Await neurology consult. CARDIOVASCULAR: S1, S2. Lungs clear. GI soft. Hematology negative Homans. ASSESSMENT: Atypical transient ischemic attack, rule out cervical spinal disease. Await for Neurology recommendations. Check carotid artery and EEG. MMODL / IJN: [id number] /
[2018-05-10] MEDS ORDERED: MORPHINE ORAL SOLN 10 MG/5 ML CUP PO PRN (21:55)
[2018-05-10 22:12] LABS: Anion Gap 6 mmol/L; Blood Urea Nitrogen 10 mg/dL (7-17); Calcium 8.6 mg/dL (8.4-10.2); Carbon Dioxide 25 mmol/L (22-30); Chloride 110 mmol/L (98-107); Glucose 106 mg/dL (74-99); Magnesium 1.8 mg/dL (1.6-2.3); Potassium 3.7 mmol/L (3.5-5.1); Sodium 141 mmol/L (137-145)
[2018-05-11] MEDS: SODIUM CHLORIDE 0.9% 1,000 ML IV SCH ×3 (03:20→20:12)
[2018-05-11] MEDS: PANTOPRAZOLE 40 MG TABLET PO SCH (05:59)
[2018-05-11] MEDS: LEVOTHYROXINE 25 MCG TAB PO SCH (05:59)
[2018-05-11 06:44] LABS: INR 3.5 (<1.2); Prothrombin Time 31.4 sec (9.0-12.0)
[2018-05-11] MEDS: GABAPENTIN 300 MG CAP PO SCH ×2 (08:31→20:12)
[2018-05-11] MEDS: ATORVASTATIN 40 MG TAB PO SCH (08:31)
[2018-05-11] MEDS: METOPROLOL TARTRATE 50 MG TAB PO SCH ×2 (08:32→20:12)
[2018-05-11] MEDS: ASPIRIN 325 MG TAB PO SCH (08:32)
[2018-05-11] MEDS ORDERED: Magnesium Replacement Protocol 1 EACH MISC MISCELLANE PRN (08:39)
[2018-05-11] MEDS ORDERED: Potassium Replacement Protocol 1 EACH MISC MISCELLANE PRN (08:39)
[2018-05-11] MEDS ORDERED: POTASSIUM CHLORIDE ER 20 MEQ TAB.ER PO SCH (09:00)
--- NOTE | 2018-05-11 09:23 | MR ---
EXAMINATION TYPE: MR brain wo/w con DATE OF EXAM: 05/11/2018 COMPARISON: CT brain from 2 days ago HISTORY: TIA per order. Patient admitted 2 days earlier for weakness. TECHNIQUE: Multiplanar, multisequence images of the brain and brainstem is performed without and with IV contras t, utilizing 9 mL intravenous Gadavist . FINDINGS: Diffusion weighted images demonstrate no evidence of a recent infarct or other diffusion ab normality. There is no worrisome extra-axial fluid collection. There is diffuse ventricular and sulc al prominence consistent with mild diffuse cerebral atrophy. There are focal and confluent areas of T 2 hyperintensity seen throughout the white matter bilaterally most prominent in the deep and perivent ricular white matter. Findings are most likely on basis of product of chronic small vessel ischemic c hange in patient of this age. Midline structures demonstrate normal morphology. The craniocervical junction appears within normal limits. Post contrast images demonstrate no abnormal enhancement. The dural venous sinuses appear pa tent. The visualized sinuses are clear and the globes are intact. Nasal septum is deviated to left of midline. IMPRESSION: 1. No evidence of a recent infarct. 2. Background mild diffuse cerebral atrophy and moderate to advanced chronic small vessel ischemic ch rudolph noted.
[2018-05-11] MEDS: MAGNESIUM SULFATE-D5W PMX 1 GM in DEXTROSE/WATER 1 100ML.BAG IVPB SCH ×2 (09:28→10:28)
--- NOTE | 2018-05-11 10:13 | P.CRDCN ---
History of Present Illness Consult date: 05/11/18 Requesting physician: Karan Yuan Reason for Consult (text): Possible TIA Chief complaint: Left hand and arm numbness and weakness History of present illness: This is a 72-year-old female who follows with Dr. Carter in the office. She has a known history of hypertension, hyperlipidemia, prior DVT approximately 22 years ago for which she takes Coumadin, hypothyroidism history also. Patient also has a history of cervical and lumbar disc disease for which she follows with Dr. Grimes as an outpatient.presents to the hospital with symptoms of the left hand numbness, left arm numbness and weakness. According to the patient, she's also been experiencing occasional headache at home. According to the patient's , she had similar symptoms on Friday, went to [facility] at that time, they were told patient had a possible TIA and she was discharged home. CT angiography of the head and neck did not reveal any significant flow-limiting stenosis. CT of the brain revealed mild white matter changes most likely chronic ischemic changes. EKG on arrival here showed a normal sinus rhythm with nonspecific ST-T wave changes noted. CT of the cervical spine revealed diffuse degenerative disc disease and hypertrophic spondylosis, multivessel intravertebral narrowing. Diffuse joint disease, emphysema changes in the lungs. CAT scan of the brain did not reveal any evidence of a recent infarct, round mild diffuse cerebral atrophy and moderate chronic small vessel ischemic changes noted. Blood pressure on arrival here 134/80 with a heart rate in the 70s, 95% on room air. Temperature 99.5. At pressure this morning 152/76, heart rate in the 50s, 98% on 2 L of oxygen. CBC normal. Pro time 31.4, INR 3.5. Sodium 141, potassium 3.7, BUN 10 , creatinine 0.7. Troponin 0.012. Magnesium 1.8. Patient has had no evidence of atrial fibrillation on the monitor. My examination this morning, she denies any left hand or arm numbness. She states that she seems to get the symptoms approximately every 6 hours. Past Medical History Past Medical History: Deep Vein Thrombosis (DVT), Hyperlipidemia, Hypertension, Thyroid Disorder History of Any Multi-Drug Resistant Organisms: None Reported Past Surgical History: Cholecystectomy, Hysterectomy, Joint Replacement, Orthopedic Surgery Additional Past Surgical History / Comment(s): both knees replaced, feet surgery ; pilonidal cyst Past Anesthesia/Blood Transfusion Reactions: No Reported Reaction Past Psychological History: No Psychological Hx Reported Smoking Status: Never smoker Past Alcohol Use History: Rare Past Drug Use History: None Reported - Past Family History Father Family Medical History: Deep Vein Thrombosis (DVT) Brother(s) Family Medical History: Deep Vein Thrombosis (DVT) Medications and Allergies Home Medications Medication Instructions Recorded Confirmed Type Acetaminophen-Codeine 300-30mg 1 tab PO Q4H PRN 02/07/17 05/10/18 History [Tylenol #3] Atorvastatin [Lipitor] 40 mg PO DAILY 02/07/17 05/10/18 History Cyclobenzaprine [Flexeril] 10 mg PO TID PRN 02/07/17 05/10/18 History Levothyroxine Sodium [Synthroid] 25 mcg PO DAILY 02/07/17 05/10/18 History Metoprolol Tartrate [Lopressor] 50 mg PO BID 02/07/17 05/10/18 History Omeprazole [PriLOSEC] 40 mg PO DAILY 02/07/17 05/10/18 History Warfarin [Coumadin] 2.5 mg PO DAILY 02/07/17 05/10/18 History clonazePAM [KlonoPIN] 0.5 mg PO TID PRN 02/07/17 05/10/18 History Allergies Allergy/AdvReac Type Severity Reaction Status Date / Time nickel Allergy Severe Rash/Hives Verified 05/10/18 13:21 Penicillins Allergy Anaphylaxis Verified 05/10/18 13:21 Sulfa (Sulfonamide Allergy Anaphylaxis Verified 05/10/18 13:21 Antibiotics) acetaminophen [From Lortab] AdvReac Nausea & Verified 05/10/18 13:21 Vomiting hydrocodone [From Lortab] AdvReac Nausea & Verified 05/10/18 13:21 Vomiting nitrofurantoin AdvReac Nausea & Verified 05/10/18 13:21 [From Macrobid] Vomiting Physical Exam Vitals: Vital Signs Temp Pulse Resp BP Pulse Ox 05/11/18 08:00 97.8 F 58 L 16 153/77 98 05/11/18 06:00 97 F L 56 L 18 155/74 95 05/11/18 04:00 61 16 05/11/18 03:20 97.2 F L 61 16 127/64 94 L 08/06/18 02:53 97.2 F L 62 16 132/64 95 05/11/18 00:00 97.2 F L 72 18 132/70 95 05/10/18 22:53 97.7 F 68 18 130/68 95 05/10/18 20:53 97.4 F L 74 18 134/74 95 05/10/18 20:00 74 18 130/68 95 05/10/18 16:45 76 18 150/76 90 L 05/10/18 14:53 68 18 148/68 92 L 05/10/18 12:53 64 18 132/78 97 05/10/18 10:53 62 16 131/74 94 L Intake and Output 05/10/18 05/11/18 05/11/18 22:59 06:59 14:59 Intake Total 240 400 Output Total 0 Balance 240 400 0 Intake: Intake, IV Titration 400 Amount Sodium Chloride 0.9% 1, 400 000 ml @ 100 mls/hr IV . Q10H [facility] Rx#:[id number] Oral 240 Output: Urine 0 Stool 0 Urine/Stool Mix 0 Emesis 0 Other: Voiding Method Toilet Toilet # Voids 2 2 0 # Bowel Movements 0 Weight 87.2 kg PHYSICAL EXAMINATION: GENERAL: 72-year-old female in no acute distress at the time of my examination HEENT: Head is atraumatic, normocephalic. Pupils equal, round. Sclera anicteric. Conjunctiva are clear. Mucous membranes of the mouth are moist. Neck is supple. There is no elevated jugular venous pressure. No carotid bruit is heard. HEART EXAMINATION: Heart S1, S2 normal. No murmur or gallop heard. CHEST EXAMINATION: Lungs are clear to auscultation and precussion. No chest wall tenderness is noted on palpation or with deep breathing. ABDOMEN: Soft, nontender. Bowel sounds are heard. No organomegaly noted. EXTREMITIES: 2+ peripheral pulses with no evidence of peripheral edema and no calf tenderness noted. NEUROLOGIC patient is awake, alert and oriented X3. . Results 05/09/18 18:47 05/10/18 21:37 Coagulation 05/10/18 05/11/18 Range/Units 10:35 06:22 PT 26.9 H 31.4 H (9.0-12.0) sec Comprehensive Metabolic Panel 05/10/18 Range/Units 21:37 Sodium 141 (137-145) mmol/L Potassium 3.7 (3.5-5.1) mmol/L Chloride 110 H (98-107) mmol/L Carbon Dioxide 25 (22-30) mmol/L BUN 10 (7-17) mg/dL Creatinine 0.70 (0.52-1.04) mg/dL Glucose 106 H (74-99) mg/dL Calcium 8.6 (8.4-10.2) mg/dL Current Medications Generic Name Dose Route Start Last Admin Trade Name Freq PRN Reason Stop Dose Admin Acetaminophen/Codeine Phosphate 1 each 05/10/18 10:21 05/10/18 13:55 Tylenol #3 PO 1 each Q4H PRN Administration Pain Aspirin 325 mg 05/10/18 09:00 05/11/18 08:32 Aspirin PO Not Given DAILY SELENA Atorvastatin Calcium 40 mg 05/11/18 09:00 05/11/18 08:31 Lipitor PO 40 mg DAILY SELENA Administration Clonazepam 0.5 mg 05/10/18 10:21 Klonopin PO TID PRN Anxiety Cyclobenzaprine HCl 10 mg 05/10/18 10:21 Flexeril PO TID PRN Muscle Spasm Gabapentin 300 mg 05/10/18 21:00 05/11/18 08:31 Neurontin PO 300 mg BID SELENA Administration Sodium Chloride 1,000 mls @ 100 mls/hr 05/09/18 20:00 05/11/18 03:20 Saline 0.9% IV 100 mls/hr .Q10H SE[facility] Administration Magnesium Sulfate/Dextrose 1 100 mls @ 100 mls/hr 05/11/18 08:45 05/11/18 09: 28 gm/ IV Solution IVPB 05/11/18 10:44 100 mls/hr Q1H SELENA Administration Levothyroxine Sodium 25 mcg 05/11/18 06:30 05/11/18 05:59 Synthroid PO 25 mcg DAILY@0630 SELENA Administration Metoprolol Tartrate 50 mg 05/10/18 21:00 05/11/18 08:32 Lopressor PO 50 mg BID SELENA Administration Miscellaneous Information 1 each 05/11/18 08:39 Magnesium Per Protocol MISCELLANE DAILY PRN Per Protocol Protocol Miscellaneous Information 1 each 05/11/18 08:39 Potassium Per Protocol MISCELLANE DAILY PRN Per Protocol Protocol Morphine Sulfate 12 mg 05/10/18 21:55 Morphine Oral Jody 2mg/Ml PO Q6HR PRN Moderate Pain Ondansetron HCl 4 mg 05/09/18 20:06 05/10/18 14:00 Zofran IVP 4 mg Q6HR PRN Administration Nausea And Vomiting Pantoprazole Sodium 40 mg 05/11/18 07:30 05/11/18 05:59 Protonix PO 40 mg [id number] SELENA Administration Warfarin Sodium 2.5 mg 05/11/18 18:00 Coumadin PO DAILY@1800 SELENA Intake and Output 05/10/18 05/11/18 05/11/18 22:59 06:59 14:59 Intake Total 240 400 Output Total 0 Balance 240 400 0 Intake: Intake, IV Titration 400 Amount Sodium Chloride 0.9% 1, 400 000 ml @ 100 mls/hr IV . Q10H [facility] Rx#:[id number] Oral 240 Output: Urine 0 Stool 0 Urine/Stool Mix 0 Emesis 0 Other: Voiding Method Toilet Toilet # Voids 2 2 0 # Bowel Movements 0 Weight 87.2 kg 05/09/18 18:47 05/10/18 21:37 EKG Interpretations (text) EKG shows a normal sinus rhythm with nonspecific ST-T wave changes Assessment and Plan Plan: Assessment and plan #1 symptoms of left hand and arm numbness and tingling, rule out TIA #2 hypertension #3 cervical disc disease #4 history of DVT, 22 years ago, continues to be on Coumadin, INR 3.5 #5 hypothyroidism #6 hyperlipidemia Plan We will obtain an echocardiogram with Doppler study. We will also continue to monitor for any atrial arrhythmias. We will obtain Dr. Carter's progress note from the office. According to the patient, she's been taking Coumadin for 22 years for a DVT noted at that time, we will attempt to look into the records and assess whether or not patient needs to continue Coumadin. Further recommendations to follow. DNP note has been reviewed, I agree with a documented findings and plan of care. Patient was seen and examined.
--- NOTE | 2018-05-11 10:57 | US ---
EXAMINATION TYPE: US abdomen complete DATE OF EXAM: 05/11/2018 COMPARISON: NONE CLINICAL HISTORY: nausea/emesis. Vomiting, GB removed EXAM MEASUREMENTS: Liver Length: 13.4 cm CBD: 1.0 cm Spleen: 8.9 cm Right Kidney: 10.4 x 4.7 x 5.8 cm Left Kidney: 9.6 x 5.4 x 4.7 cm Pancreas: wnl, tail obscured by overlying bowel gas Liver: Possible intrahepatic dilatation, otherwise visualized portions appeared wnl Gallbladder: Surgically absent Evidence for sonographic Denson's sign: No CBD: wnl for post ji Spleen: Difficult to visualize Right Kidney: Cortical thinning, hypoechoic lesion lower pole= 1.4 x 1.4 x 1.4 cm Left Kidney: Difficult to visualize due to overlying bowel gas Upper IVC: wnl Abd Aorta: wnl There is no ascites. IMPRESSION: Limited exam. Postop changes. Dilation of the common bile duct may be due to postcholecys tectomy change. Exophytic right renal lesion may be due to simple cyst, follow-up could be performed to assess for stability. Cortical thinning may be due to medical renal disease.
--- NOTE | 2018-05-11 11:31 | ECHOF ---
Referral Reason:Thrombus MEASUREMENTS -------- HEIGHT: 165.1 cm WEIGHT: 87.1 kg BP: 155/74 RVIDd: 3.2 cm (< 3.3) IVSd: 1.2 cm (0.6 - 1.1) LVIDd: 3.7 cm (3.9 - 5.3) LVPWd: 1.2 cm (0.6 - 1.1) IVSs: 2.0 cm LVIDs: 2.1 cm LVPWs: 1.7 cm Ao Diam: 3.3 cm (2.0 - 3.7) AV Cusp: 2.2 cm (1.5 - 2.6) LA Diam: 3.3 cm (2.7 - 3.8) MV EXCURSION: 16.312 mm (> 18.000) MV EF SLOPE: 67 mm/s (70 - 150) EPSS: 0.4 cm MV E Dale: 0.67 m/s MV DecT: 238 ms MV A Dale: 0.65 m/s MV E/A Ratio: 1.02 RAP: 5.00 mmHg RVSP: 36.14 mmHg FINDINGS -------- Sinus rhythm. This was a technically good study. The left ventricular size is normal. There is mild concentric left ventricular hypertrophy. Overa ll left ventricular systolic function is normal with, an EF between 55 - 60 %. The right ventricle is normal in size and function. The left atrium is normal in size. The right atrium is normal in size. Aortic valve is trileaflet and is mildly thickened. The mitral valve leaflets are mildly thickened. Mild mitral regurgitation is present. Moderate tricuspid regurgitation present. The right ventricular systolic pressure, as measured by D oppler, is 36.14mmHg. Pulmonic valve appears structurally normal. The aortic root size is normal. Normal inferior vena cava with normal inspiratory collapse consistent with estimated right atrial pre ssure of 5 mmHg. The pericardium is normal. CONCLUSIONS -------- 1. Sinus rhythm. 2. This was a technically good study. 3. The left ventricular size is normal. 4. There is mild concentric left ventricular hypertrophy. 5. Overall left ventricular systolic function is normal with, an EF between 55 - 60 %. 6. The right ventricle is normal in size and function. 7. The left atrium is normal in size. 8. The right atrium is normal in size. 9. Aortic valve is trileaflet and is mildly thickened. 10. The mitral valve leaflets are mildly thickened. 11. Mild mitral regurgitation is present. 12. Moderate tricuspid regurgitation present. 13. The right ventricular systolic pressure, as measured by Doppler, is 36.14mmHg. 14. Pulmonic valve appears structurally normal. 15. The aortic root size is normal. 16. Normal inferior vena cava with normal inspiratory collapse consistent with estimated right atrial pressure of 5 mmHg. 17. The pericardium is normal. PLATE GLASS GRINDER: Valentina Armendariz RDCS
--- NOTE | 2018-05-11 17:30 | P.PN ---
Subjective Progress Note Date: 05/11/18 Patient is a pleasant 72-year-old female who is being followed by the neurology service for left hand and arm numbness and weakness, headache. 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 Patient also has history of hypertension, hyperlipidemia and hypothyroidism. Patient also has history of cervical lumbar disc disease and follows with Dr. Grimes as an outpatient. Patient states she is getting left hand and finger tingling and numbness. Patient states this tingling and numbing sensation comes and goes. Patient reports this sensation only last seconds. CT of the brain done on admission showed mild white matter changes most likely chronic ischemic changes. CTA was done which showed no significant flow limiting stenosis. Cervical spine CT showed C5 6, and C6 7 disc disease with bilateral foraminal narrowing. Patient states her headache has subsided at this time. Cardiology is following for possible arrhythmias. MRI of the brain was done which showed no recent infarct. MRI of the brain does show mild diffuse cerebral atrophy and chronic small vessel ischemic changes. At the time of my evaluation, patient's resting comfortably in bed and appears to be in no acute distress. Objective - Vital Signs Vital signs: Vital Signs Temp 97.8 F 05/11/18 12:00 Pulse 63 05/11/18 12:00 Resp 18 05/11/18 12:00 BP 118/65 05/11/18 12:00 Pulse Ox 93 L 05/11/18 12:00 Intake & Output 05/10/18 05/11/18 05/11/18 18:59 06:59 18:59 Intake Total 480 400 Output Total 0 Balance 480 400 0 Weight 87.2 kg Intake: Intake, IV Titration 400 Amount Sodium Chloride 0.9% 1, 400 000 ml @ 100 mls/hr IV . Q10H STA Rx#:[id number] Oral 480 Output: Urine 0 Stool 0 Urine/Stool Mix 0 Emesis 0 Other: Voiding Method Toilet Toilet # Voids 2 2 1 # Bowel Movements 0 - Exam PHYSICAL EXAM: GENERAL APPEARANCE: Patient is a well-developed, female who appears to be in no acute distress. HEENT: Normocephalic, atraumatic, no facial asymmetry is seen. Neck is supple with no masses felt. CARDIOVASCULAR: Regular rate and rhythm. ABDOMEN: Nontender, nondistended. EXTREMITIES: Show no edema or clubbing. NEUROLOGICAL EXAM: Patient is awake, alert, and oriented 3. Speech and language are normal. Strength is full in all 4 extremities. Sensory exam to light touch is normal in all 4 extremities. No facial asymmetry is seen on cranial nerve testing. No tremors or seizure-like activity noted. - Labs CBC & Chem 7: 05/09/18 18:47 05/11/18 11:01 Labs: Abnormal Lab Results - Last 24 Hours (Table) 05/10/18 05/11/18 Range/Units 21:37 06:22 PT 31.4 H (9.0-12.0) sec INR 3.5 H (<1.2) Chloride 110 H (98-107) mmol/L Glucose 106 H (74-99) mg/dL Assessment and Plan Plan: Impression: 1. Possible TIA versus CVA, ruled out 2. Migraine headache, resolved 3. Left hand and fingers numbness and tingling 4. Hypertension 5. Cervical disc disease 6. Chronic back pain 7. History of lower extremity DVTs, on Coumadin Recommendations: Patient states headache has resolved. As mentioned above, CT of the brain and CTA of the brain were negative for any acute process. MRI of the brain was done which showed no acute process. No infarct was noted. Neurological exam shows no lateralizing weakness, dysarthria or facial asymmetry. She denies dysphagia. EEG was done and results are pending. Serum homocysteine level is normal. Continue anticoagulation with warfarin. INR was therapeutic on admission at 3.1. Continue statin therapy. As for her left hand and finger numbness and tingling, CT of the cervical spine does show C5-C6 and C6-C7 intravertebral foraminal narrowing due to degenerative disc disease. Patient may benefit from cervical epidurals in the outpatient setting. I also recommend a neurosurgical consultation as an outpatient for possible intervention. For now I would recommend starting gabapentin 300 mg daily at bedtime with a goal of titrating up to 300 mg 3 times a day. Patient will need NCS/EMGs of the upper extremities in the outpatient setting. Continue neurological checks. Continue current medical management for hypertension and nausea. Patient can follow up as an outpatient for further testing such as NCS/ EMG. Barring any abnormality on the EEG, I will continue to follow with you on an as-needed basis. Feel free to call with any questions or concerns. I performed an examination of the patient and discussed the management with the WOOD SHOP TEACHER. I have reviewed the WOOD SHOP TEACHER notes and agree with the findings and plan of care.
[2018-05-11] MEDS ORDERED: WARFARIN 2.5 MG TAB PO SCH (18:00)
--- NOTE | 2018-05-11 22:08 | PN ---
PROGRESS NOTE SUBJECTIVE: A 72-year-old white female with hypertension, CVA. MRI is pending. CT scan of the neck shows cervical stenosis. Cardiovascular S1, S2. Lungs clear. Musculoskeletal is palpation cervical spine. Hematology negative Homans. GI soft, nontender. ASSESSMENT: 1. Cerebrovascular accident. 2. Hypertension. 3. Cervical stenosis. Possible discharge home in the morning. Await ultrasound of the abdomen and MRI of the brain. MMODL / IJN: [id number] /
[2018-05-12 06:23] VITALS: RESP 18
[2018-05-12] MEDS: PANTOPRAZOLE 40 MG TABLET PO SCH (06:24)
[2018-05-12] MEDS: LEVOTHYROXINE 25 MCG TAB PO SCH (06:24)
[2018-05-12 07:26] LABS: Potassium 3.9 mmol/L (3.5-5.1)
[2018-05-12] MEDS: ASPIRIN 325 MG TAB PO SCH ×2 (09:13→09:18)
[2018-05-12] MEDS: ATORVASTATIN 40 MG TAB PO SCH (09:13)
[2018-05-12] MEDS: METOPROLOL TARTRATE 50 MG TAB PO SCH (09:13)
[2018-05-12] MEDS: GABAPENTIN 300 MG CAP PO SCH (09:13)
[2018-05-12 09:17] LABS: INR 2.3 (<1.2); Prothrombin Time 20.9 sec (9.0-12.0)
[2018-05-12] MEDS: SODIUM CHLORIDE 0.9% 1,000 ML IV SCH (09:17)
[2018-05-12 09:23] VITALS: BP 182/86; PULSE 69; TEMP 98.2
--- NOTE | 2018-05-12 14:14 | P.PN ---
Subjective Progress Note Date: 05/12/18 This is a 72-year-old female who follows with Dr. Carter in the office. She has a known history of hypertension, hyperlipidemia, prior DVT approximately 22 years ago for which she takes Coumadin, hypothyroidism history also. Patient also has a history of cervical and lumbar disc disease for which she follows with Dr. Grimes as an outpatient.presents to the hospital with symptoms of the left hand numbness, left arm numbness and weakness. According to the patient, she's also been experiencing occasional headache at home. According to the patient's , she had similar symptoms on Friday, went to [facility] at that time, they were told patient had a possible TIA and she was discharged home. CT angiography of the head and neck did not reveal any significant flow-limiting stenosis. CT of the brain revealed mild white matter changes most likely chronic ischemic changes. EKG on arrival here showed a normal sinus rhythm with nonspecific ST-T wave changes noted. CT of the cervical spine revealed diffuse degenerative disc disease and hypertrophic spondylosis, multivessel intravertebral narrowing. Diffuse joint disease, emphysema changes in the lungs. CAT scan of the brain did not reveal any evidence of a recent infarct, round mild diffuse cerebral atrophy and moderate chronic small vessel ischemic changes noted. Blood pressure on arrival here 134/80 with a heart rate in the 70s, 95% on room air. Temperature 99.5. At pressure this morning 152/76, heart rate in the 50s, 98% on 2 L of oxygen. CBC normal. Pro time 31.4, INR 3.5. Sodium 141, potassium 3.7, BUN 10 , creatinine 0.7. Troponin 0.012. Magnesium 1.8. Patient has had no evidence of atrial fibrillation on the monitor. My examination this morning, she denies any left hand or arm numbness. She states that she seems to get the symptoms approximately every 6 hours. 05/12/2018 Patient seen and examined this morning, feeling significantly better overall. No further left hand and finger numbness. Blood pressure 146/70 with a heart rate in the 60s, 94% on room air. Pro Time 20.9 with an INR of 2.3. We did have a lengthy discussion with the patient regarding her Coumadin, she apparently has been taking it for 22 years or more, she did have a DVT at that time. We will let Dr. Carter reevaluated in the office regarding the need for continuing Coumadin. Objective - Vital Signs Vital signs: Vital Signs Temp 98.2 F 05/12/18 09:19 Pulse 69 05/12/18 09:19 Resp 18 05/12/18 09:19 BP 182/86 05/12/18 09:19 Pulse Ox 93 L 05/12/18 09:19 Intake & Output 05/11/18 05/12/18 05/12/18 18:59 06:59 18:59 Intake Total 740 120 Output Total 0 0 0 Balance 0 740 120 Weight 88.8 kg Intake: Intake, IV Titration 500 Amount Sodium Chloride 0.9% 1, 500 000 ml @ 100 mls/hr IV . Q10H SELENA Rx#:[id number] Oral 240 120 Output: Urine 0 Stool 0 0 0 Urine/Stool Mix 0 Emesis 0 0 Other: Voiding Method Toilet Toilet # Voids 1 2 1 # Bowel Movements 0 0 - Exam PHYSICAL EXAMINATION: GENERAL: 54-year-old gentleman quite short of breath at the time of my examination. HEENT: Head is atraumatic, normocephalic. Pupils equal, round. Sclera anicteric. Conjunctiva are clear. Mucous membranes of the mouth are moist. Neck is supple. There is no elevated jugular venous pressure. No carotid bruit is heard. HEART EXAMINATION: Heart S1 and S2 irregularly irregular CHEST EXAMINATION:'s reveal rales to bilateral bases with diminished air entry to the bases. ABDOMEN: Soft, nontender. Bowel sounds are heard. No organomegaly noted. EXTREMITIES: 2+ peripheral pulses with trace no evidence of peripheral edema and no calf tenderness noted. NEUROLOGIC patient is awake, alert and oriented ?-3. - Labs CBC & Chem 7: 05/09/18 18:47 05/12/18 06:12 Labs: Abnormal Lab Results - Last 24 Hours (Table) 05/12/18 Range/Units 06:12 PT 20.9 H (9.0-12.0) sec INR 2.3 H (<1.2) Assessment and Plan Plan: Assessment and plan #1 symptoms of left hand and arm numbness and tingling, rule out TIA #2 hypertension #3 cervical disc disease #4 history of DVT, 22 years ago, continues to be on Coumadin #5 hypothyroidism #6 hyperlipidemia Plan Echocardiogram with Doppler study was performed which revealed a normal left ventricular systolic function, right ventricle mildly enlarged, L a severely dilated, moderate mitral regurgitation. From cardiology's perspective, she may be able to be discharged home today to follow-up with Dr. Carter in the office. She will continue on Coumadin, and the need for continuation of Coumadin will be discussed further with Dr. Carter in the office. DNP note has been reviewed, I agree with a documented findings and plan of care. Patient was seen and examined.
--- NOTE | 2018-05-13 14:07 | EEG ---
ELECTROENCEPHALOGRAM REPORT DATE OF SERVICE: 05/11/2018 REASON FOR TESTING: Headache. DESCRIPTION OF THE PROCEDURE: This EEG was performed using a 21 channel digital electroencephalograph, following international 10-20 system. DESCRIPTION OF THE RECORDING: From the beginning of the tracing, and with patient's eyes closed, the background rhythm was mostly consisting of 8-9 Hz alpha frequency in the posterior occipital leads. No obvious asymmetry is seen. Rare movement artifacts are noticed. Photic stimulation was performed with a minimal driving response seen. No pathological waves were elicited. The patient does reach stage II of sleep during the tracing and occasional K complexes are seen. No epileptiform discharges were seen. Hyperventilation was not performed. Her EKG lead showed a regular rate and rhythm. INTERPRETATION: This asleep and awake EEG can be considered within normal limits. There is no asymmetry seen. No epileptiform discharges were noticed. The absence of epileptiform discharges does not rule out the diagnosis of epilepsy; therefore, clinical correlation is recommended. MMPATI / GREG: [id number] /
== END 2018-05-12 11:52 | disposition home or self-care (01) | DRG 69 ==
LOC: EC 16:25 → 6SEL 19:54
PROVIDERS: ADMIT Family Medicine; ATTEND Family Medicine
DX: G45.9 Transient cerebral ischemic attack, unspecified (principal); E03.9 Hypothyroidism, unspecified; E78.5 Hyperlipidemia, unspecified; G43.909 Migraine, unspecified, not intractable, without status migrainosus; G89.29 Other chronic pain; I10 Essential (primary) hypertension; J43.9 Emphysema, unspecified; M50.30 Other cervical disc degeneration, unspecified cervical region; M48.02 Spinal stenosis, cervical region; Z79.01 Long term (current) use of anticoagulants; Z79.899 Other long term (current) drug therapy; Z86.718 Personal history of other venous thrombosis and embolism; Z90.710 Acquired absence of both cervix and uterus; Z79.890 Hormone replacement therapy; Z88.1 Allergy status to other antibiotic agents; Z88.0 Allergy status to penicillin; Z88.2 Allergy status to sulfonamides; Z90.49 Acquired absence of other specified parts of digestive tract; Z96.653 Presence of artificial knee joint, bilateral; Z84.89 Family history of other specified conditions
CPT/HCPCS: 36415; 70450; 70496; 70498; 70553; 72125; 76700; 80048; 80053; 80061; 82150; 82550; 82553; 83090; 83690; 83735; 84100; 84132; 84484; 85025; 85610; 85730; 93005; 93306; 95816; 96361; 96374; 96375; 99285

== ENCOUNTER → 2018-06-15 | Outpatient (CLI) | payer MEDICARE ==
--- NOTE | 2018-06-15 16:28 | MR ---
EXAMINATION TYPE: MR cervical spine wo con DATE OF EXAM: 06/15/2018 COMPARISON: None HISTORY: Radiculopathy, cervical region TECHNIQUE: Multiplanar, multisequence images of the cervical spine were acquired. C2-C3: No evidence for degenerative disc disease. No disc bulge/herniation or protrusion. No Canal stenosis. Foramina are patent bilaterally. C3-C4: No evidence for degenerative disc disease. No disc bulge/herniation or protrusion. No Canal stenosis. Foramina are patent bilaterally. C4-C5: Minimal disc bulge is present with anterior thecal sac flattening. No AP spinal canal stenosis or neural foraminal stenosis is present C5-C6: There is loss of disc height is level. Endplate disc bulge has moderate anterior thecal sac fl attening. Minimal cord contact may be present. No cord deformity is evident. No spinal canal stenosis is present C6-C7: Mild disc bulge is present with anterior thecal sac flattening. No cord contact is evident. Un covertebral joint hypertrophy is moderate right and mild left foraminal narrowing. C7-T1: No evidence for degenerative disc disease. No disc bulge/herniation or protrusion. No Canal stenosis. Foramina are patent bilaterally. Cervical cord maintains normal signal through its visualized course. Craniovertebral junction is norm al. Disc desiccation is throughout the cervical spine. There is loss of disc height C5-6, C6-7. IMPRESSION: Degenerative disc changes C5-6 C6-7 with loss of disc height. 2. Endplate disc bulging with moderate anterior thecal sac compression C5-6. Milder disc bulging is p resent C6-7, C4-5.
== END | disposition home or self-care (01) ==
LOC: RADMRIMAIN 08:18
PROVIDERS: ATTEND Family Medicine
DX: M50.122 Cervical disc disorder at C5-C6 level with radiculopathy (principal)
CPT/HCPCS: 72141

== ENCOUNTER → 2018-08-24 | Outpatient (CLI) | payer MEDICARE ==
--- NOTE | 2018-08-25 13:20 | MM ---
Reason for exam: screening (asymptomatic). Last mammogram was performed 1 year ago. History: Patient is postmenopausal. Physical Findings: A clinical breast exam by your physician is recommended on an annual basis and results should be correlated with mammographic findings. MG 3D Screening Mammo W/Cad Bilateral CC, MLO, and XCCL view(s) were taken. Prior study comparison: August 19, 2017, bilateral MG 3d screening mammo w/cad. July 23, 2016, bilateral MG 3d screening mammo w/cad. There are scattered fibroglandular densities. No suspicious abnormality. No significant changes when compared with prior studies. ASSESSMENT: Negative, BI-RAD 1 RECOMMENDATION: Routine screening mammogram of both breasts in 1 year.
== END ==
LOC: RADMAMWWP 08:57
PROVIDERS: ATTEND Family Medicine
DX: Z12.31 Encounter for screening mammogram for malignant neoplasm of breast (principal)
CPT/HCPCS: 77063; 77067

== ENCOUNTER → 2019-10-04 | Outpatient (CLI) | payer MEDICARE ==
--- NOTE | 2019-10-07 10:37 | MM ---
Reason for exam: screening (asymptomatic). Last mammogram was performed 1 year and 1 month ago. History: Patient is postmenopausal. Physical Findings: A clinical breast exam by your physician is recommended on an annual basis and results should be correlated with mammographic findings. MG 3D Screening Mammo W/Cad Bilateral CC and MLO view(s) were taken. XCCL view(s) were taken of the left breast. Prior study comparison: August 24, 2018, bilateral MG 3d screening mammo w/cad. August 19, 2017, bilateral MG 3d screening mammo w/cad. The breast tissue is heterogeneously dense. This may lower the sensitivity of mammography. There is chronic nodularity bilaterally. There is no discrete abnormality. ASSESSMENT: Benign, BI-RAD 2 RECOMMENDATION: Routine screening mammogram of both breasts in 1 year.
== END | disposition home or self-care (01) ==
LOC: RADMAMWWP 13:26
PROVIDERS: ATTEND Family Medicine
DX: Z12.31 Encounter for screening mammogram for malignant neoplasm of breast (principal)
CPT/HCPCS: 77063; 77067

== ENCOUNTER → 2019-10-12 | Outpatient (CLI) | payer MEDICARE ==
--- NOTE | 2019-10-12 12:47 | CT ---
EXAMINATION TYPE: CT abdomen pelvis w con DATE OF EXAM: 10/12/2019 COMPARISON: None HISTORY: Wt loss, nausea and vomiting, epigastric pain CT DLP: 1009.7 mGycm Automated exposure control for dose reduction was used. CONTRAST: CT scan of the abdomen pelvis is performed with IV Contrast, patient injected with 100 mL of Isovue 3 00. FINDINGS- LUNG BASES-heart is enlarged and there is subsegmental changes at the lung bases most atelectasis.. LIVER/GB-mild intrahepatic biliary ductal dilation likely post cholecystectomy. PANCREAS- No gross abnormality is seen. SPLEEN- No gross abnormality is seen. ADRENALS- No gross abnormality is seen. KIDNEYS/BLADDER- no hydronephrosis or nephrolithiasis. Bilateral simple appearing renal cysts.. BOWEL-there is pericolonic inflammatory change within the distal left colon and proximal sigmoid colo n as well as diverticula in a pattern most typical of acute diverticulitis. No free air. LYMPH NODES- No greater than 1cm abdominal or pelvic lymph nodes areappreciated. OSSEOUS STRUCTURES-hypertrophic and degenerative change spine. Multilevel severe degenerative disc di sease. Multilevel canal stenosis suspected. Disc protrusion or herniation L1-L2. Multilevel facet art hropathy. Sclerotic density involving the right ilium likely related to bone island. OTHER- aorta of normal caliber. Mild atherosclerotic changes . Correlate for previous hysterectomy. IMPRESSION- 1. Acute left colon diverticulitis with no evidence of abscess or free air. Report called to camilo wills.
== END | disposition home or self-care (01) ==
LOC: RADCTMAIN 10:05
PROVIDERS: ATTEND Family Medicine
DX: K57.32 Diverticulitis of large intestine without perforation or abscess without bleeding (principal)
CPT/HCPCS: 82565; 84520; 74177; 36415; Q9967

== ENCOUNTER → 2020-11-02 | Outpatient (CLI) | payer MEDICARE ==
--- NOTE | 2020-11-03 14:56 | MM ---
Reason for exam: screening (asymptomatic). Last mammogram was performed 1 year and 1 month ago. History: Patient is postmenopausal. Physical Findings: A clinical breast exam by your physician is recommended on an annual basis and results should be correlated with mammographic findings. MG 3D Screening Mammo W/Cad Bilateral CC, MLO, and XCCL view(s) were taken. Prior study comparison: October 04, 2019, bilateral MG 3d screening mammo w/cad. August 24, 2018, bilateral MG 3d screening mammo w/cad. There are scattered fibroglandular densities. There are benign appearing round calcifications in the right breast. There is chronic nodularity in the left breast. There is no discrete abnormality. ASSESSMENT: Benign, BI-RAD 2 RECOMMENDATION: Routine screening mammogram of both breasts in 1 year.
== END | disposition home or self-care (01) ==
LOC: RADMAMWWP 13:35
PROVIDERS: ATTEND Family Medicine
DX: Z12.31 Encounter for screening mammogram for malignant neoplasm of breast (principal)
CPT/HCPCS: 77063; 77067

== ENCOUNTER → 2021-12-13 | Outpatient (CLI) | payer MEDICARE ==
--- NOTE | 2021-12-14 11:41 | MM ---
Reason for exam: screening (asymptomatic). Last mammogram was performed 1 year and 1 month ago. History: Patient is postmenopausal. Physical Findings: A clinical breast exam by your physician is recommended on an annual basis and results should be correlated with mammographic findings. MG 3D Screening Mammo W/Cad Bilateral CC and MLO view(s) were taken. Prior study comparison: November 02, 2020, bilateral MG 3d screening mammo w/cad. October 04, 2019, bilateral MG 3d screening mammo w/cad. The breast tissue is heterogeneously dense. This may lower the sensitivity of mammography. There is no discrete abnormality. No significant changes when compared with prior studies. ASSESSMENT: Negative, BI-RAD 1 RECOMMENDATION: Routine screening mammogram of both breasts in 1 year.
== END | disposition home or self-care (01) ==
LOC: RADMAMWWP 14:00
PROVIDERS: ATTEND Family Medicine
DX: Z12.31 Encounter for screening mammogram for malignant neoplasm of breast (principal); Z78.0 Asymptomatic menopausal state
CPT/HCPCS: 77063; 77067

== ENCOUNTER → 2022-08-01 | Outpatient (CLI) | payer MEDICARE ==
--- NOTE | 2022-08-01 10:25 | US ---
EXAMINATION TYPE: US liver DATE OF EXAM: 08/01/2022 COMPARISON: 05/11/2018 CLINICAL HISTORY: 77-year-old female R74.01 ELEVATED LFT. TECHNIQUE: Multiple sonographic images of the right upper quadrant are obtained. FINDINGS: EXAM MEASUREMENTS: Liver Length: 11.9 cm Gallbladder: Surgically absent CBD: 1.0 cm Right Kidney: 10.0 x 4.5 x 4.8 cm Pancreas: Tail obscured by overlying bowel gas. No gross abnormality along the visualized portions. Liver: Slightly coarsened echotexture may be undetectable basis to body habitus. No focal lesion seen . Gallbladder: Surgically absent Evidence for sonographic Denson's sign: No CBD: Mildly dilated. Right Kidney: Thin cortex, echogenic sinus. No hydronephrosis. Lower pole cyst was seen on the prior exam and measures 1.6 cm. IMPRESSION: 1. Slightly coarsened echotexture of the liver on a technical basis or could reflect nonspecific hepa tocellular disease. No focal lesion seen. 2. Bile duct is mildly dilated at 1 cm. This may be normal given patient's postcholecystectomy status . Correlate with outside phosphatase and bilirubin levels. 3. Right kidney shows changes of chronic medical renal disease.
== END | disposition home or self-care (01) ==
LOC: RADUSWWP 07:20
PROVIDERS: ATTEND Family Medicine
DX: N18.9 Chronic kidney disease, unspecified (principal); K76.89 Other specified diseases of liver; K83.8 Other specified diseases of biliary tract; Z90.49 Acquired absence of other specified parts of digestive tract
CPT/HCPCS: 76705

== ENCOUNTER → 2023-01-08 | Outpatient (CLI) | payer MEDICARE ==
--- NOTE | 2023-01-08 15:09 | BD ---
EXAMINATION TYPE: Axial Bone Density DATE OF EXAM: 01/08/2023 CLINICAL HISTORY: 77 years old Female. ICD-10 CODE: Z78.0 Post menopausal without HRT Height: 62.2 in Weight: 180 lbs FRAX RISK QUESTIONS: Secondary Osteoporosis: 3. Menopause before 45: total hysterectomy age 29 RISK FACTORS HISTORY OF: Surgery to Spine: l-spine surgery 2020 Active: limited Diet low in dairy products/other sources of calcium: yes Postmenopausal woman: total hysterectomy age 29 Lost more than 2 inches in height since high school: yes 3" MEDICATIONS: Thyroid Medications: yes Which medication: Levothyroxine How Lon+ years Additional Medications: blood pressure meds, pain meds, sleeping aid, EXAM MEASUREMENTS: Bone mineral densitometry was performed using the [employer] System. l-spine surgery 2020 Bone mineral density about the R hip (g/cm2): 0.685 Bone mineral density about the L hip (g/cm2): 0.620 T Score values are as follows: -----R Neck: -2.8 -----L Neck: -2.7 -----R Total: -2.6 -----L Total: -3.1 Z Score values are as follows: -----R Neck: -1.1 -----L Neck: -1.0 -----R Total: -1.1 -----L Total: -1.6 Bone mineral density baseline Bone mineral density about the L Wrist (g/cm2): 0.384 T Score values are as follows: -----Dist. R+U: -2.9 -----Prox. R+U: -4.6 -----Radius total: -4.8 Z Score values are as follows: -----Dist. R+U: -0.4 -----Prox. R+U: -2.1 -----Radius total: -2.3 Bone mineral density baseline FRAX%s: The graph provided illustrates a 19.8% chance for a major osteoporotic fx and a 7.2% chance f or the hips probability for fx in 10 years time. IMPRESSION: Osteoporosis (T Score less than -2.5). There is increased fracture risk and therapy is usually indicated based on age. Re-Screen 1-2 years. NOTE: T-SCORE=SD OF THE YOUNG ADULT MEAN.
--- NOTE | 2023-01-09 08:42 | MM ---
Reason for Exam: Screening (asymptomatic). Last mammogram was performed 1 year(s) and 1 month(s) ago. Patient History: Menarche at age 12. First Full-Term at age 25. Left ovary removed at age 30. Right ovary removed at age 30. Hysterectomy at age 30. Postmenopausal. Risk Values: Verena 5 year model risk: 1.9%. NCI Lifetime model risk: 3.7%. Prior Study Comparison: 10/04/2019 Bilateral Screening Mammogram, [facility]. 11/02/2020 Bilateral Screening Mammogram, [facility]. 12/13/2021 Bilateral Screening Mammogram, [facility]. Tissue Density: There are scattered fibroglandular densities. Findings: Analyzed By CAD. There is no suspicious group of microcalcifications or new suspicious mass in either breast. Overall Assessment: Negative, BI-RAD 1 Management: Screening Mammogram of both breasts in 1 year. A clinical breast exam by your physician is recommended on an annual basis and results should be correlated with mammographic findings. Electronically signed and approved by: Han Spaulding M.D. Radiologis
== END | disposition home or self-care (01) ==
LOC: RADMAMWWP 12:54
PROVIDERS: ATTEND Family Medicine
DX: Z12.31 Encounter for screening mammogram for malignant neoplasm of breast (principal); M81.0 Age-related osteoporosis without current pathological fracture; M85.89 Other specified disorders of bone density and structure, multiple sites; Z78.0 Asymptomatic menopausal state
CPT/HCPCS: 77063; 77067; 77080

== ENCOUNTER → 2024-01-12 | Outpatient (CLI) | payer MEDICARE ==
--- NOTE | 2024-01-13 12:46 | MM ---
Reason for Exam: Screening (asymptomatic). Last screening mammogram was performed 12 month(s) ago. Patient History: Menarche at age 12. First Full-Term at age 25. Left ovary removed at age 30. Right ovary removed at age 30. Hysterectomy at age 30. Postmenopausal. Risk Values: Verena 5 year model risk: 1.9%. NCI Lifetime model risk: 3.4%. Prior Study Comparison: 11/02/2020 Bilateral Screening Mammogram, [facility]. 12/13/2021 Bilateral Screening Mammogram, [facility]. 01/08/2023 Bilateral MG 3D screening mammo w/cad, [facility]. Tissue Density: There are scattered areas of fibroglandular density. Findings: Analyzed By CAD. There is no suspicious group of microcalcifications or new suspicious mass in either breast. Overall Assessment: Negative, BI-RAD 1 Management: Screening Mammogram of both breasts in 1 year. . Patient should continue monthly self-breast exams. A clinical breast exam by your physician is recommended on an annual basis. This exam should not preclude additional follow-up of suspicious palpable abnormalities. Note on Verena scores and lifetime risk: 1. A Verena score greater than 3% is considered moderate risk. If this is the case, consider specialist referral to assess eligibility for a risk reducing agent. 2. If overall lifetime risk for the development of breast cancer is 20% or higher, the patient may qualify for future screening with alternating mammogram and breast MRI. Electronically signed and approved by: Han Spaulding M.D. Radiologis
== END | disposition home or self-care (01) ==
LOC: RADMAMWWP 09:44
PROVIDERS: ATTEND Family Medicine
DX: Z12.31 Encounter for screening mammogram for malignant neoplasm of breast (principal); Z78.0 Asymptomatic menopausal state
CPT/HCPCS: 77063; 77067

== ENCOUNTER → 2025-01-17 | Outpatient (CLI) | payer MEDICARE ==
--- NOTE | 2025-01-17 14:34 | MM ---
Reason for Exam: Screening (asymptomatic). Last screening mammogram was performed 12 month(s) ago. Patient History: Menarche at age 12. First Full-Term at age 25. Left ovary removed at age 30. Right ovary removed at age 30. Hysterectomy at age 30. Postmenopausal. Risk Values: Verena 5 year model risk: 1.9%. NCI Lifetime model risk: 3.1%. Prior Study Comparison: 12/13/2021 Bilateral Screening Mammogram, LOCATED WITHIN [facility]. 01/08/2023 Bilateral MG 3D screening mammo w/cad, LOCATED [facility]IN [facility]. 01/12/2024 Bilateral MG 3D screening mammo w/cad, LOCATED WITHIN [facility]. Tissue Density: There are scattered areas of fibroglandular density. Findings: Analyzed By CAD. A few tiny benign-appearing round calcifications scattered throughout the right breast are redemonstrated. There is no suspicious new group of microcalcifications or new suspicious mass in either breast. Overall Assessment: Benign, BI-RAD 2 Management: Screening Mammogram of both breasts in 1 year. . Patient should continue monthly self-breast exams. A clinical breast exam by your physician is recommended on an annual basis. This exam should not preclude additional follow-up of suspicious palpable abnormalities. Note on Verena scores and lifetime risk: 1. A Verena score greater than 3% is considered moderate risk. If this is the case, consider specialist referral to assess eligibility for a risk reducing agent. 2. If overall lifetime risk for the development of breast cancer is 20% or higher, the patient may qualify for future screening with alternating mammogram and breast MRI. [facility], , 01/17/2025 2:31 PM. Electronically signed and approved by: De Jones M.D.
--- NOTE | 2025-01-17 14:34 | BD ---
EXAMINATION TYPE: Axial Bone Density DATE OF EXAM: 01/17/2025 CLINICAL HISTORY: 79 years old Female. ICD-10 CODE: Z78.0 POST KAELA , Additional History: Height: 62.5 Weight: 176 FRAX RISK QUESTIONS: Family History (Parent hip fracture): no History of Fracture in Adulthood: no Secondary Osteoporosis: yes 3. Menopause before 45: yes RISK FACTORS HISTORY OF: Surgery to Spine: yes When: 2021 MEDICATIONS: Thyroid Medications: yes Which medication: Synthroid How Lon+ years Osteoporosis Medications: no EXAM MEASUREMENTS: Bone mineral densitometry was performed using the Medical Simulation System. Bone mineral density as measured about the Lumbar spine is: ----- L1-L4(G/cm2): 1.199 T Score Values are as follows: ----- L1: -0.2 ----- L2: 0.7 ----- L3: 0.2 ----- L4: -0.3 ----- L1-L4: 0.2 Z Score Values are as follows: ----- L1: 1.1 ----- L2: 2.0 ----- L3: 1.6 ----- L4: 1.1 ----- L1-L4: 1.5 Bone mineral density baseline Bone mineral density about the R hip (g/cm2): 0.643 Bone mineral density about the L hip (g/cm2): 0.618 T Score values are as follows: -----R Neck: -3.5 -----L Neck: -3.3 -----R Total: -2.9 -----L Total: -3.1 Z Score values are as follows: -----R Neck: -1.7 -----L Neck: -1.5 -----R Total: -1.3 -----L Total: -1.5 Bone mineral density has: Decreased -0.3% since study of: 01/08/2023 FRAX%s: The graph provided illustrates a 29.9% chance for a major osteoporotic fx and a 14.1% chance for the hips probability for fx in 10 years time. IMPRESSION: Osteoporosis (T Score less than -2.5) remains present in the hips. There is increased fracture risk and therapy is usually indicated based on age. Re-Screen 1-2 years. NOTE: T-SCORE=SD OF THE YOUNG ADULT MEAN. [facility], , 01/17/2025 2:32 PM
== END | disposition home or self-care (01) ==
LOC: RADBDWWP 12:53
PROVIDERS: ATTEND Family Medicine
DX: Z12.31 Encounter for screening mammogram for malignant neoplasm of breast (principal); R92.323 Mammographic fibroglandular density, bilateral breasts; M81.0 Age-related osteoporosis without current pathological fracture; M85.89 Other specified disorders of bone density and structure, multiple sites; Z78.0 Asymptomatic menopausal state
CPT/HCPCS: 77063; 77067; 77080